=== PATIENT | female | born 1995 | race Caucasian/White ===

== ENCOUNTER 2019-11-13 13:43 | Emergency (ER) | payer OTHER, SELFPAY ==
[~2019-11-13] VITALS: Ht 160 cm; Wt 54.4 kg
[2019-11-13 13:51] VITALS: BP 105/59
--- NOTE | 2019-11-13 14:23 | NUR ---
24 Y/O F REFERRED BY OB DOCTOR TO GET TESTED FOR COVID 19 DUE TO PT BEING POSITIVE TWO MONTHS AGO. PER PT CANNOT RETURN TO OB DOCTOR UNTIL BEING TESTED AND BEEN NEGATIVE RESULT. PT PRESENTS AMBULATORY,EUPNIC,VSS,A/OX4. NO DISTRESS OR COMPLAINTS. NKA. NO HX. NO RX. NO NVD. SIDE RAIL X1. PER PT CURRENTLY 6 MONTHS .
[2019-11-13] MEDS ORDERED: DOPPLER MC ONE (14:27)
[2019-11-13 14:51] VITALS: BP 105/59
--- NOTE | 2019-11-13 14:51 | NUR ---
COVID SWAB DONE TAKEN TO LAB
--- NOTE | 2019-11-13 14:52 | NUR ---
Patient discharged with v/s stable. Written and verbal after care instructions given and explained. Patient verbalized understanding. Ambulatory with steady gait. All questions addressed prior to discharge. Advised to follow up with PMD.
== END 2019-11-13 14:52 | disposition home or self-care (01) ==
LOC: MED 13:43
DX: O26.892 Other specified pregnancy related conditions, second trimester (principal); Z20.828 Contact with and (suspected) exposure to other viral communicable diseases
CPT/HCPCS: 99284; U0003; 99283

== ENCOUNTER 2020-01-22 19:06 | Observation (INO) | payer OTHER, SELFPAY ==
[~2020-01-22] VITALS: Ht 162.6 cm; Wt 58.5 kg
[2020-01-22] MEDS ORDERED: PNV1TABL PO (19:44)
[2020-01-22] MEDS ORDERED: CALC500C17 PO (19:45)
[2020-01-22] MEDS ORDERED: FERR-212 PO (19:45)
[2020-01-22] MEDS ORDERED: VITA1TAB44 PO (19:45)
[2020-01-22] MEDS ORDERED: LACTATED RINGERS 1,000 ML IV SCH (20:00)
[2020-01-22 20:40] LABS: APPEARANCE,URINE CLEAR (CLEAR); BILIRUBIN,URINE NEGATIVE (NEGATIVE); BLOOD, URINE NEGATIVE (NEGATIVE); COLOR,URINE YELLOW (YELLOW); LEUKOCYTE ESTERASE ,URINE TRACE (NEGATIVE); NITRITE, URINE NEGATIVE (NEGATIVE); UGLUCOSE NEGATIVE (NEGATIVE)
[2020-01-22] MEDS ORDERED: BETAMETH ACET/BETAMETH NA PH 30 MG/5 ML VIAL IM ONE (20:45)
[2020-01-22 20:50] LABS: RBC,URINE 0-5 /HPF (0-5)
[2020-01-22 20:54] LABS: ALBUMIN 2.8 g/dL (3.4-5.0); ANION GAP 13.9 (8-16); CARBON DIOXIDE 24.8 mmol/L (21-32); CREATININE 0.6 mg/dL (0.6-1.3); POTASSIUM 3.7 mmol/L (3.5-5.1); TOTAL BILIRUBIN 0.3 mg/dL (0.0-1.0)
[2020-01-22 21:38] VITALS: BP 107/65
[2020-01-22 22:32] LABS: BASOPHILS % (AUTO) 0.2 % (0.0-2.0); EOSINOPHILS # (AUTO) 0.1 K/uL (0-0.4); EOSINOPHILS % (AUTO) 0.7 % (0.0-4.0); HEMATOCRIT 38.4 % (36-48); HEMOGLOBIN 13.1 g/dL (12.0-16.0); LYMPHOCYTES # (AUTO) 1.6 K/uL (2.5-16.5); MEAN CORPUSCULAR HEMOGLOBIN 32 pg (27-31); MEAN CORPUSCULAR HGB CONC 34 g/dL (33-37); MEAN CORPUSCULAR VOLUME 95.3 fL (80-94); MONOCYTES # (AUTO) 0.4 K/uL (0.8-1.0); MONOCYTES % (AUTO) 5.8 % (1.7-9.3); NEUTROPHILS # (AUTO) 5.3 K/uL (1.8-7.7); NEUTROPHILS % (AUTO) 71.3 % (42.2-75.2); PLATELET COUNT (AUTO) 145 K/uL (140-450); RED BLOOD CELL COUNT(AUTO) 4.03 MIL/uL (4.20-5.40); RED CELL DISTRIBUTION WIDTH 13.9 % (11.6-13.7); WHITE BLOOD COUNT (AUTO) 7.5 K/uL (4.8-10.8)
--- NOTE | 2020-01-23 08:37 | NUR ---
PATIENT HAS BEEN SCREENED AND CATEGORIZED LOW NUTRITION RISK. PATIENT WILL BE SEEN WITHIN 7 DAYS OF ADMISSION. 01/29/[address]
[2020-01-23] MEDS ORDERED: BETAMETH ACET/BETAMETH NA PH 30 MG/5 ML VIAL IM SCH (09:00)
== END 2020-01-23 21:35 | disposition home or self-care (01) ==
LOC: MFCC 19:06
PROVIDERS: ADMIT Obstetrics & Gynecology; ATTEND Obstetrics & Gynecology
DX: O36.8130 Decreased fetal movements, third trimester, not applicable or unspecified (principal); Z20.828 Contact with and (suspected) exposure to other viral communicable diseases; O26.893 Other specified pregnancy related conditions, third trimester; R10.2 Pelvic and perineal pain; Z86.19 Personal history of other infectious and parasitic diseases; Z3A.36 36 weeks gestation of pregnancy
CPT/HCPCS: 36415; 59025; 76819; 80053; 81001; 85025; 86886; 86900; 86901; 87086; 87426; 87653; 96372; G0378; J0702; J7120

== ENCOUNTER 2020-02-07 00:14 | Inpatient (IN) | payer OTHER, SELFPAY ==
[~2020-02-07] VITALS: Ht 162.6 cm; Wt 58.5 kg
[~2020-02-07 00:14] MED LIST: CALC500C17 PO; FERR-212 PO; PNV1TABL PO; VITA1TAB44 PO
[2020-02-07] MEDS ORDERED: ONDANSETRON 4 MG/2 ML VIAL IVP PRN (00:25)
[2020-02-07] MEDS ORDERED: MISOPROSTOL 200 MCG TAB VG SCH (00:25)
[2020-02-07] MEDS ORDERED: OXYTOCIN 20 UNITS in LACTATED RINGERS 1,000 ML IV SCH (00:25)
[2020-02-07] MEDS ORDERED: MORPHINE SULFATE 10 MG/ML VIAL IVP PRN (00:55)
[2020-02-07] MEDS ORDERED: MISOPROSTOL 200 MCG TAB VG PRN (01:05)
[2020-02-07 01:07] LABS: APPEARANCE,URINE CLEAR (CLEAR); BILIRUBIN,URINE NEGATIVE (NEGATIVE); BLOOD, URINE NEGATIVE (NEGATIVE); COLOR,URINE YELLOW (YELLOW); LEUKOCYTE ESTERASE ,URINE NEGATIVE (NEGATIVE); NITRITE, URINE NEGATIVE (NEGATIVE); UGLUCOSE NEGATIVE (NEGATIVE)
[2020-02-07 01:08] LABS: BASOPHILS % (AUTO) 0.3 % (0.0-2.0); EOSINOPHILS # (AUTO) 0.1 K/uL (0-0.4); EOSINOPHILS % (AUTO) 0.7 % (0.0-4.0); HEMATOCRIT 40.8 % (36-48); HEMOGLOBIN 13.7 g/dL (12.0-16.0); LYMPHOCYTES # (AUTO) 2.1 K/uL (2.5-16.5); LYMPHOCYTES % (AUTO) 22.7 % (20.5-51.1); MEAN CORPUSCULAR HEMOGLOBIN 32 pg (27-31); MEAN CORPUSCULAR HGB CONC 34 g/dL (33-37); MEAN CORPUSCULAR VOLUME 95.6 fL (80-94); MONOCYTES # (AUTO) 0.6 K/uL (0.8-1.0); MONOCYTES % (AUTO) 6.5 % (1.7-9.3); NEUTROPHILS # (AUTO) 6.3 K/uL (1.8-7.7); NEUTROPHILS % (AUTO) 69.8 % (42.2-75.2); PLATELET COUNT (AUTO) 137 K/uL (140-450); RED BLOOD CELL COUNT(AUTO) 4.27 MIL/uL (4.20-5.40); RED CELL DISTRIBUTION WIDTH 13.8 % (11.6-13.7)
[2020-02-07 01:22] LABS: ANION GAP 15.2 (8-16); CARBON DIOXIDE 27.5 mmol/L (21-32); CREATININE 0.6 mg/dL (0.6-1.3); POTASSIUM 3.7 mmol/L (3.5-5.1); TOTAL BILIRUBIN 0.3 mg/dL (0.0-1.0)
[2020-02-07] MEDS ORDERED: LACTATED RINGERS 1,000 ML IV SCH (01:45)
[2020-02-07 01:46] VITALS: BP 118/77
[2020-02-07] MEDS ORDERED: OXYTOCIN 20 UNITS/LR PREMIX 1,000 ML IV ONE (02:34)
[2020-02-07] MEDS ORDERED: ROPIVACAINE 0.2%/NS PREMIX 200 ML EPI ONE (08:35)
[2020-02-07] MEDS ORDERED: bisacodyL 5 MG TABEC PO PRN (12:35)
[2020-02-07] MEDS ORDERED: DOCUSATE SODIUM 100 MG GELCAP PO PRN (12:35)
[2020-02-07] MEDS ORDERED: IBUPROFEN 800 MG TAB PO PRN (12:35)
[2020-02-07] MEDS ORDERED: IBUPROFEN 600 MG TAB PO PRN (12:35)
[2020-02-07] MEDS ORDERED: OXYTOCIN 10 UNITS/ML VIAL IM PRN (12:35)
[2020-02-07] MEDS ORDERED: BENZOCAINE/MENTHOL 20%-0.5% 60 GM CAN TP PRN (12:35)
[2020-02-07] MEDS ORDERED: METHYLERGONOVINE 0.2 MG TAB PO PRN (12:35)
[2020-02-07] MEDS ORDERED: SIMETHICONE 80 MG TAB.CHEW PO PRN (12:35)
[2020-02-07] MEDS ORDERED: MEASLES, MUMPS, AND RUBELLA 1 VIAL SQVAC PRN (12:35)
[2020-02-07] MEDS ORDERED: METHYLERGONOVINE 0.2 MG/ML AMP IM PRN (12:35)
[2020-02-08] MEDS ORDERED: FLU VACCINE QS2020-21 0.5 ML SYR IMVAC PRN (06:20)
--- NOTE | 2020-02-08 06:52 | NUR ---
PATIENT HAS BEEN SCREENED AND CATEGORIZED LOW NUTRITION RISK. PATIENT WILL BE SEEN WITHIN 7 DAYS OF ADMISSION. 02/14/20 CHRISTY HOPKINS MS, RDN
[2020-02-08 07:28] LABS: HEMATOCRIT 36.6 % (36-48); HEMOGLOBIN 12.3 g/dL (12.0-16.0)
== END 2020-02-08 16:10 | disposition home or self-care (01) | DRG 560 ==
LOC: MLD 00:14 → MFCC 15:25
PROVIDERS: ADMIT Obstetrics & Gynecology; ATTEND Obstetrics & Gynecology
PROC: 10E0XZZ Delivery of Products of Conception, External Approach (ICD-10-PCS; principal; 2020-02-07)
PROC: 10907ZC Drainage of Amniotic Fluid, Therapeutic from Products of Conception, Via Natural or Artificial Opening (ICD-10-PCS; 2020-02-07)
PROC: 3E0234Z Introduction of Serum, Toxoid and Vaccine into Muscle, Percutaneous Approach (ICD-10-PCS; 2020-02-08)
DX: O80 Encounter for full-term uncomplicated delivery (principal); Z37.0 Single live birth; Z3A.39 39 weeks gestation of pregnancy; Z23 Encounter for immunization; Z20.828 Contact with and (suspected) exposure to other viral communicable diseases
CPT/HCPCS: 36415; 51702; 59409; 76815; 80053; 81003; 85018; 85025; 86592; 86762; 86886; 86900; 86901; 87340; 90715; J2590; J2795